=== PATIENT | male | born 1985 | race American Indian/Alaskan Native ===

== ENCOUNTER 2017-08-08 10:19 | Emergency (ER) | payer MEDICAID, OTHER ==
[2017-08-08 10:35] VITALS: BP 142/88
[2017-08-08] MEDS ORDERED: Bupivacaine 0.25% 10 ML SDV INJECT ONE (10:36)
--- NOTE | 2017-08-08 10:42 | EDM.PDOC ---
ED HPI GENERAL MEDICAL PROBLEM - General Chief Complaint: General Stated Complaint: TOOTH PAIN Time Seen by Provider: 08/08/17 10:30 Source of Information: Reports: Patient, Alf Records, RN History Limitations: Reports: No Limitations - History of Present Illness INITIAL COMMENTS - FREE TEXT/NARRATIVE: Pt presents to the ER with c/o dental pain. He states the pain began about 2 days ago. He c/o throbbing pain which he rates an 8-9/10 from the front of the left ear down the left lower jaw. He states he is unable to determine if it is a tooth on the upper jaw or lower jaw. He states he is sensitive to hot and cold and it is very painful to chew or eat. He states he has not been able to sleep for a few days. Onset: Gradual Onset Date: 08/06/17 Location: Reports: Face Quality: Reports: Ache, Throbbing Severity: Severe Improves with: Reports: None Worsens with: Reports: Eating Associated Symptoms: Reports: No Other Symptoms. 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 Left Tooth/Teeth Pain Score (Numeric/FACES): 8 - Related Data Allergies Allergy/AdvReac Type Severity Reaction Status Date / Time amoxicillin Allergy Mild Hives Verified 08/08/17 10:29 Penicillins Allergy Hives Verified 08/08/17 10:29 strawberry Allergy Hives Verified 08/08/17 10:29 Home Meds: Home Meds Ibuprofen [Motrin] 600 mg PO Q8H PRN 12/27/14 [History] Acetaminophen [Tylenol Extra Strength] 1,000 mg PO Q6HR PRN 08/08/17 [History] Past Medical History - Past Health History Medical/Surgical History: Denies Medical/Surgical History - Past Surgical History Other HEENT Surgeries/Procedures: dental surgery3-15 Social & Family History - Family History Family Medical History: Noncontributory - Tobacco Use Smoking Status *Q: Current Every Day Smoker Years of Tobacco use: 15 Packs/Tins Daily: 0.6 Used Tobacco, but Quit: No Second Hand Smoke Exposure: Yes - Caffeine Use Caffeine Use: Reports: Energy Drinks, Soda - Alcohol Use Days Per Week of Alcohol Use: 0 - Recreational Drug Use Recreational Drug Use: Yes Drug Use in Last 12 Months: Yes Recreational Drug Type: Reports: Marijuana/Hashish Recreational Drug Use Frequency: Daily Recreational Drug Last Use: t-3 ED ROS GENERAL - Review of Systems Review Of Systems: ROS reveals no pertinent complaints other than HPI. ED EXAM, GENERAL - Physical Exam Exam: See Below Exam Limited By: No Limitations General Appearance: Alert, WD/WN, Moderate Distress Eye Exam: Bilateral Eye: EOMI, Normal Inspection Ears: Normal External Exam, Normal Canal, Hearing Grossly Normal, Normal TMs Nose: Normal Inspection, Normal Mucosa, No Blood Throat/Mouth: Normal Inspection, Normal Lips, Normal Oropharynx, Normal Voice, No Airway Compromise. No: Normal Teeth (2nd molars bilaterally on the bottom are rotted with deep pits. No abscess noted at this time), Normal Gums ( Swelling and mild erythema to the gums on the left back lower jaw. ) Head: Atraumatic, Normocephalic Neck: Normal Inspection, Supple, Non-Tender, Full Range of Motion Respiratory/Chest: No Respiratory Distress, Lungs Clear, Normal Breath Sounds, No Accessory Muscle Use, Chest Non-Tender Cardiovascular: Normal Peripheral Pulses, Regular Rate, Rhythm, No Edema, No Gallop, No JVD, No Murmur, No Rub Peripheral Pulses: 2+: Radial (L), Radial (R) GI/Abdominal: Normal Bowel Sounds, Soft, Non-Tender, No Organomegaly, No Distention (Male) Exam: Deferred Rectal (Males) Exam: Deferred Back Exam: Normal Inspection, Full Range of Motion Extremities: Normal Inspection, Normal Range of Motion, Non-Tender, No Pedal Edema, Normal Capillary Refill Neurological: Alert, Oriented, CN II-XII Intact, Normal Cognition, Normal Gait, Normal Reflexes, No Motor/Sensory Deficits Psychiatric: Normal Affect, Normal Mood Skin Exam: Warm, Dry, Intact, Normal Color, No Rash Lymphatic: Adenopathy (left cervical anterior +2) ED GENERAL MEDICAL PROCEDURES - Additional/Other Procedure(s) Other (Free Text) Procedure(s): Buprivicaine 2ml injected for dental block on the left side upper and lower palate beside and behind each molar. Course - Vital Signs Last Recorded V/S: Last Vital Signs Temp 98.3 F 08/08/17 10:31 Pulse 93 08/08/17 10:31 Resp 18 08/08/17 10:31 BP 142/88 H 08/08/17 10:31 Pulse Ox 97 08/08/17 10:31 - Orders/Labs/Meds Meds: Medications Discontinued Medications Generic Name Dose Route Start Last Admin Trade Name Drew PRN Reason Stop Dose Admin Bupivacaine HCl 10 ml 08/08/17 10:36 08/08/17 10:42 Sensorcaine-Mpf 0.25% INJECT 08/08/17 10:37 10 ml ONETIME ONE Administration Departure - Departure Time of Disposition: 10:56 Disposition: Home, Self-Care 01 Condition: Fair Clinical Impression: Pain, dental - Discharge Information Instructions: Dental Abscess, [id number] Referrals: Raghavendra Whyte [Primary Care Provider] - Forms: ED Department Discharge Additional Instructions: RX: Clindamycin, Diclofenac, viscous lidocaine Follow up with your Dental office on Wednesday. May take Tylenol (acetaminophen) 650mg every 4 hours for pain Do not take ibuprofen while taking the Diclofenac
== END 2017-08-08 11:03 | disposition home or self-care (01) ==
LOC: DL.ED 10:19
DX: K08.89 Other specified disorders of teeth and supporting structures (principal); F17.210 Nicotine dependence, cigarettes, uncomplicated; Z79.899 Other long term (current) drug therapy; Z88.1 Allergy status to other antibiotic agents; Z88.0 Allergy status to penicillin; Z91.018 Allergy to other foods
CPT/HCPCS: 64400; 99282; 99283

== ENCOUNTER 2019-01-23 21:00 | Emergency (ER) | payer MEDICAID, OTHER ==
[2019-01-23 21:08] VITALS: BP 138/93
[2019-01-23] MEDS ORDERED: Clindamycin HCl 150 MG Cap PO ONE (21:16)
[2019-01-23] MEDS ORDERED: Ibuprofen 600 MG Tab PO ONE (21:16)
--- NOTE | 2019-01-23 21:18 | EDM.PDOC ---
ED HPI GENERAL MEDICAL PROBLEM - General Chief Complaint: ENT Problem Stated Complaint: TOOTH IS HURTING Time Seen by Provider: 01/23/19 21:13 Source of Information: Reports: Patient History Limitations: Reports: No Limitations - History of Present Illness INITIAL COMMENTS - FREE TEXT/NARRATIVE: left lower dental pain Oral/Mouth Pain Score (Numeric/FACES): 10 - Related Data Allergies Allergy/AdvReac Type Severity Reaction Status Date / Time amoxicillin Allergy Mild Hives Verified 01/23/19 21:05 Penicillins Allergy Hives Verified 01/23/19 21:05 strawberry Allergy Hives Verified 01/23/19 21:05 Home Meds: Home Meds Ibuprofen [Motrin] 600 mg PO Q8H PRN 12/27/14 [History] Acetaminophen [Tylenol Extra Strength] 1,000 mg PO Q6HR PRN 08/08/17 [History] Past Medical History - Past Health History Medical/Surgical History: Denies Medical/Surgical History HEENT History: Reports: None Cardiovascular History: Reports: None Respiratory History: Reports: None Gastrointestinal History: Reports: None Genitourinary History: Reports: None Musculoskeletal History: Reports: None Neurological History: Reports: None Psychiatric History: Reports: None Endocrine/Metabolic History: Reports: None Hematologic History: Reports: None Immunologic History: Reports: None Oncologic (Cancer) History: Reports: None Dermatologic History: Reports: None - Past Surgical History Other HEENT Surgeries/Procedures: dental surgery3-15 Social & Family History - Family History Family Medical History: Noncontributory - Tobacco Use Smoking Status *Q: Light Tobacco Smoker Years of Tobacco use: 10 Packs/Tins Daily: 0.1 - Caffeine Use Caffeine Use: Reports: Energy Drinks, Soda - Recreational Drug Use Recreational Drug Use: Yes Recreational Drug Type: Reports: Marijuana/Hashish Recreational Drug Use Frequency: Weekly ED ROS ENT - Review of Systems Review Of Systems: ROS reveals no pertinent complaints other than HPI. ED EXAM, ENT - Physical Exam Exam: See Below Exam Limited By: No Limitations General Appearance: Alert, Mild Distress Eye Exam: Bilateral Eye: EOMI Ears: Normal External Exam Nose: Normal Inspection Mouth/Throat: Dental Pain (large decay left lower posterior molar, mild swelling surrounding gum.), Dental Tenderness, Gum Swelling Head: Atraumatic, Normocephalic Neck: Lymphadenopathy (L) Respiratory/Chest: No Respiratory Distress, Lungs Clear, Normal Breath Sounds Cardiovascular: Normal Peripheral Pulses, Regular Rate, Rhythm Back: Full Range of Motion Neurological: Alert, Oriented Psychiatric: Normal Affect Skin: Warm, Dry, Intact Course - Vital Signs Last Recorded V/S: Last Vital Signs Temp 97.0 F 01/23/19 21:07 Pulse 88 01/23/19 21:07 Resp 16 01/23/19 21:07 BP 138/93 H 01/23/19 21:07 Pulse Ox 100 01/23/19 21:07 - Orders/Labs/Meds Meds: Medications Discontinued Medications Generic Name Dose Route Start Last Admin Trade Name Drew PRN Reason Stop Dose Admin Clindamycin HCl 300 mg 01/23/19 21:16 01/23/19 21:27 Cleocin PO 01/23/19 21:17 300 mg ONETIME ONE Administration Ibuprofen 600 mg 01/23/19 21:16 01/23/19 21:27 Motrin PO 01/23/19 21:17 600 mg ONETIME ONE Administration Departure - Departure Time of Disposition: 21:19 Disposition: Home, Self-Care 01 Condition: Good Clinical Impression: Dental caries, Dental abscess - Discharge Information *PRESCRIPTION DRUG MONITORING PROGRAM REVIEWED*: No *COPY OF PRESCRIPTION DRUG MONITORING REPORT IN PATIENT MARIELLE: No Instructions: Dental Abscess, [id number] Referrals: PCP,None [Primary Care Provider] - Forms: ED Department Discharge Additional Instructions: follow up with dentist clindamycin 300mg three times daily for one week alternate ibuprofen 600mg and tylenol 650mg every 4 hours as needed for discomfort chew on opposite side avoid extreme temperature of foods and liquid anbesol or viscous lidocaine around tooth every 2 hours as needed for discomfort
== END 2019-01-23 21:27 | disposition home or self-care (01) ==
LOC: DL.ED 21:00
DX: K04.7 Periapical abscess without sinus (principal); F17.210 Nicotine dependence, cigarettes, uncomplicated; Z88.1 Allergy status to other antibiotic agents; Z88.0 Allergy status to penicillin; Z79.899 Other long term (current) drug therapy; Z91.018 Allergy to other foods
CPT/HCPCS: 99283; A9270

== ENCOUNTER 2025-02-10 21:44 | Emergency (ER) | payer MEDICAID, OTHER ==
[2025-02-10] MEDS ORDERED: Sodium Chloride 0.9% 10 ML Syringe FLUSH PRN (22:30)
[2025-02-10 22:41] LABS: PLATELET COUNT,PLT 299 10^3/uL (150-450); RED BLOOD CELL COUNT 3.90 10^6/uL (4.6-6.2); WHITE BLOOD CELL COUNT,WBC 7.3 10^3/uL (5.0-10.0)
[2025-02-10 22:43] LABS: BASOPHILS PERCENT AUTO 1.0 % (0.0-1.0); EOSINOPHILS PERCENT AUTO 1.4 % (1.0-3.0); LYMPHOCYTES PERCENT AUTO 35.8 % (20.5-50.1); MONOCYTES PERCENT AUTO 8.4 % (2-8); NEUTROPHILS PERCENT AUTO 53.4 % (42.2-75.2)
[2025-02-10 22:57] LABS: B-TYPE NATRIURETIC PEPTIDE,BNP 284 pg/ml (0-100)
[2025-02-10 22:58] LABS: A/G RATIO 0.97; ALANINE AMINOTRANSFERASE,ALT 85 U/L (16-63); ASPARTATE AMNIOTRANSFERASE,AST 80 U/L (15-37); BILIRUBIN TOTAL 1.1 mg/dL (0.2-1.0); BLOOD UREA NITROGEN,BUN 3 mg/dL (7-18); CARBON DIOXIDE,CO2 27 mmol/L (21-32); CHLORIDE,CL 100 mmol/L (98-107); CREATININE 1.08 mg/dL (0.70-1.30); ESTIMATED GFR 90 mL/min (>=60); ETHANOL BLOOD MEDICAL 264 mg/dL (0); GLUCOSE RANDOM 170 mg/dL (70-99); POTASSIUM,K 3.1 mmol/L (3.5-5.1); PROTEIN TOTAL,TP 6.5 g/dL (6.4-8.2); SODIUM,NA 139 mmol/L (136-145); TSH ULTRASENSITIVE 3.07 uIU/mL (0.36-3.74)
[2025-02-10 23:08] LABS: EOSINOPHILS PERCENT MAN 1 % (1-3); LYMPHOCYTES PERCENT MAN 33 % (20-50); MONOCYTES PERCENT MAN 8 % (2-8); SEG NEUTROPHILS PERCENT MAN 58 % (42-75)
[2025-02-10] MEDS: Potassium Chloride 10 MEQ Tab.ER PO ONE (23:11)
[2025-02-10] MEDS: Furosemide 40 MG/4 ML VIAL IVPUSH ONE (23:11)
[2025-02-10 23:20] LABS: APPEARANCE,URINE CLEAR (CLEAR); GLUCOSE,URINE NEGATIVE (NEGATIVE); OCCULT BLOOD,URINE NEGATIVE (NEGATIVE)
[2025-02-10 23:23] LABS: AMPHETAMINES,URINE NEGATIVE (NEGATIVE); BARBITURATES,URINE NEGATIVE (NEGATIVE); MDMA (ECSTASY), URINE NEGATIVE (NEGATIVE); METHAMPHETAMINES,URINE NEGATIVE (NEGATIVE); OPIATES,URINE NEGATIVE (NEGATIVE); OXYCODONE,URINE NEGATIVE (NEGATIVE); PHENCYCLIDINE,URINE NEGATIVE (NEGATIVE); TCA,URINE NEGATIVE (NEGATIVE)
[2025-02-10 23:28] LABS: EPITHELIAL CELLS,URINE FEW /HPF (NOT SEEN)
[2025-02-11] MEDS: Iopamidol 755 Mg/ML 100 ML Bottle IVPUSH ONE (00:46)
[2025-02-11 03:30] VITALS: BP 122/72; PULSE 118
== END 2025-02-11 04:00 ==
LOC: DL.ED 21:44
DX: J90 Pleural effusion, not elsewhere classified (principal); R09.89 Other specified symptoms and signs involving the circulatory and respiratory systems; R60.0 Localized edema; R79.89 Other specified abnormal findings of blood chemistry; F10.129 Alcohol abuse with intoxication, unspecified; F17.210 Nicotine dependence, cigarettes, uncomplicated; Z88.0 Allergy status to penicillin; Z91.018 Allergy to other foods; Z79.899 Other long term (current) drug therapy
CPT/HCPCS: 36415; 71045; 71275; 80053; 80305; 80307; 81001; 83735; 83880; 84443; 84484; 85025; 85379; 93005; 96374; 99285; A9270; J1938; Q9967